=== PATIENT | male | born 2000 | race Caucasian/White ===

== ENCOUNTER 2021-01-21 01:51 | Emergency (ER) | payer OTHER ==
[2021-01-21 02:19] LABS: HEMOGLOBIN 16.9 gm/dl (14.0-17.5); RED BLOOD COUNT 5.35 M/UL (4.20-5.50); WHITE BLOOD COUNT 6.5 K/UL (4.5-11.0)
[2021-01-21 02:43] LABS: BUN/CREATININE RATIO 18 (0-10)
== END 2021-01-21 06:02 | disposition home or self-care (01) ==
LOC: ER1 01:51
PROVIDERS: Family Medicine
DX: S93.401A Sprain of unspecified ligament of right ankle, initial encounter (principal); S00.81XA Abrasion of other part of head, initial encounter; R51.9 Headache, unspecified; Z91.013 Allergy to seafood; V27.4XXA Motorcycle driver injured in collision with fixed or stationary object in traffic accident, initial encounter; Y92.410 Unspecified street and highway as the place of occurrence of the external cause
CPT/HCPCS: 70450; 72125; 73610; 80053; 85025; 99284

== ENCOUNTER 2022-06-03 23:49 | Emergency (ER) | payer SELFPAY ==
[2022-06-04] MEDS ORDERED: OMNICEF 300 MG300 MG PO (03:30)
== END 2022-06-04 03:36 | disposition home or self-care (01) ==
LOC: ER1 23:49
DX: S68.021A Partial traumatic metacarpophalangeal amputation of right thumb, initial encounter (principal); F17.210 Nicotine dependence, cigarettes, uncomplicated; Z88.5 Allergy status to narcotic agent; W26.0XXA Contact with knife, initial encounter
CPT/HCPCS: 11760; 90471; 90715; 99283